=== PATIENT | male | born 1955 | race Caucasian/White ===

== ENCOUNTER 2017-01-17 15:24 | Inpatient (IN) | payer MEDICARE, OTHER ==
[~2017-01-17] VITALS: Ht 170.2 cm; Wt 94.8 kg
[~2017-01-17 15:24] MED LIST: ALBUTEROL0.63 MG/3 NEB; AMBIEN10 MG PO; ASPIR 8181 MG PO; ATROVENT INH S2.5 ML NEB; AZITHROMYCIN500 MG PO; BUMEX 1MG TABLET1 MG PO; COMBIVENT0.074 GM/I NEB; DIAMOX 250 MG250 MG PO; FOLIC ACID 1 MG1 MG PO; GLUCOTROL10 MG PO; HYDRALAZINE HCL25 MG PO; IMDUR ER TAB 6060 MG PO; LEVEMIR100 UNIT/1 SC; LIPITOR TAB 2020 MG PO; LISINOPRIL2.5 MG PO; LOPRESSOR 25 MG25 MG PO; NEXIUM40 MG PO; NICOTINE PATCH1 EAC1 TD; NOVOLOG 10100 UNITS/ SC; OMNICEF 300 MG300 MG PO; PLAVIX 75 MG TA75 MG PO; SPIRIVA18 MCG INH; SYMBICORT 16010.2 GM INH; THERAGRAN TAB1 EA PO; VALIUM 5 MG TAB5 MG PO; VENTOLIN/PROVE0.5 ML INH
[2017-01-17 17:24] LABS: RED BLOOD COUNT 4.39 M/UL (4.20-5.50); WHITE BLOOD COUNT 4.2 K/UL (4.5-11.0)
[2017-01-18] MEDS ORDERED: HYDRALAZINE HCL50 MG PO (00:41)
[2017-01-18 04:16] LABS: HEMOGLOBIN 12.1 gm/dl (14.0-17.5); RED BLOOD COUNT 4.13 M/UL (4.20-5.50); WHITE BLOOD COUNT 3.9 K/UL (4.5-11.0)
[2017-01-19 07:12] LABS: HEMOGLOBIN 12.9 gm/dl (14.0-17.5); RED BLOOD COUNT 4.36 M/UL (4.20-5.50); WHITE BLOOD COUNT 3.7 K/UL (4.5-11.0)
--- NOTE | 2017-01-19 19:34 | NUR ---
01/19/17 @ 1800 BLADDER SCANNED PER MD ORDER WITH 40CC NOTED ON SCREEN.
[2017-01-20 06:53] LABS: HEMOGLOBIN 13.2 gm/dl (14.0-17.5); RED BLOOD COUNT 4.5 M/UL (4.20-5.50); WHITE BLOOD COUNT 4.6 K/UL (4.5-11.0)
--- NOTE | 2017-01-20 15:04 | NUR ---
PT HAS REQUESTED TO BE UP TO BSC AND UP TO CHAIR THEN BACK IN BED SEVERAL TIMES TODAY, ALMOST FELL SEVERAL TIMES WITH 2 ASSISTING, HAD BECAME AGITATED WITH STAFF AND FAMILY, REFUSES TO USE URINAL OR BEDPAN, DR HOLDEN NOTIFIED AND WILL ASSESS. TRIM INSTALLER PROVIDED SITTER FOR PT AT THIS TIME. PT HAS SETTLED AT THIS TIME, WILL CONT TO MONITER, VITALS STABLE
[2017-01-21 04:33] LABS: HEMOGLOBIN 12.4 gm/dl (14.0-17.5); RED BLOOD COUNT 4.2 M/UL (4.20-5.50); WHITE BLOOD COUNT 5.5 K/UL (4.5-11.0)
[2017-01-22 06:00] LABS: HEMOGLOBIN 12.8 gm/dl (14.0-17.5); RED BLOOD COUNT 4.36 M/UL (4.20-5.50); WHITE BLOOD COUNT 5.5 K/UL (4.5-11.0)
[2017-01-28 06:10] LABS: HEMOGLOBIN 11.7 gm/dl (14.0-17.5); RED BLOOD COUNT 4.03 M/UL (4.20-5.50); WHITE BLOOD COUNT 5.4 K/UL (4.5-11.0)
[2017-01-28 06:51] LABS: BUN/CREATININE RATIO 11 (0-10)
[2017-01-29 05:09] LABS: HEMOGLOBIN 11.6 gm/dl (14.0-17.5); WHITE BLOOD COUNT 6.2 K/UL (4.5-11.0)
[2017-01-29 05:43] LABS: BUN/CREATININE RATIO 13 (0-10)
== END 2017-01-29 16:11 | DRG 682 ==
LOC: ER1 15:24 → M/S 19:50 → ZEROF 19:50 → M/S 21:35
PROVIDERS: Emergency Medicine; Legal Medicine; ADMIT Family Medicine
DX: N17.9 Acute kidney failure, unspecified (principal); G93.40 Encephalopathy, unspecified; I13.0 Hypertensive heart and chronic kidney disease with heart failure and stage 1 through stage 4 chronic kidney disease, or unspecified chronic kidney disease; I50.32 Chronic diastolic (congestive) heart failure; J96.11 Chronic respiratory failure with hypoxia; E87.2 Acidosis; D61.818 Other pancytopenia; E66.2 Morbid (severe) obesity with alveolar hypoventilation; E86.0 Dehydration; E87.6 Hypokalemia; A08.4 Viral intestinal infection, unspecified; E11.22 Type 2 diabetes mellitus with diabetic chronic kidney disease; N18.3 Chronic kidney disease, stage 3 (moderate); J44.9 Chronic obstructive pulmonary disease, unspecified; E11.65 Type 2 diabetes mellitus with hyperglycemia; E11.649 Type 2 diabetes mellitus with hypoglycemia without coma; I25.10 Atherosclerotic heart disease of native coronary artery without angina pectoris; I65.21 Occlusion and stenosis of right carotid artery; G72.9 Myopathy, unspecified; E78.5 Hyperlipidemia, unspecified; I73.9 Peripheral vascular disease, unspecified; R07.89 Other chest pain; R74.8 Abnormal levels of other serum enzymes; R13.10 Dysphagia, unspecified; F32.9 Major depressive disorder, single episode, unspecified; F41.1 Generalized anxiety disorder; Z95.5 Presence of coronary angioplasty implant and graft; Z95.820 Peripheral vascular angioplasty status with implants and grafts; Z86.73 Personal history of transient ischemic attack (TIA), and cerebral infarction without residual deficits; Z86.14 Personal history of Methicillin resistant Staphylococcus aureus infection; Z91.81 History of falling; Z68.32 Body mass index [BMI] 32.0-32.9, adult; Z99.81 Dependence on supplemental oxygen; Z79.4 Long term (current) use of insulin; Z79.02 Long term (current) use of antithrombotics/antiplatelets; Z79.82 Long term (current) use of aspirin; Z79.51 Long term (current) use of inhaled steroids; Z79.899 Other long term (current) drug therapy; Z88.3 Allergy status to other anti-infective agents; Z80.42 Family history of malignant neoplasm of prostate
CPT/HCPCS: 36415; 70450; 70551; 71010; 72125; 74230; 80048; 80053; 81001; 82140; 82550; 82553; 82962; 83605; 83690; 83874; 83880; 84484; 85025; 85027; 85610; 85730; 86140; 86618; 86666; 87040; 87045; 87046; 87086; 89055; 92526; 92610; 92611-GN; 94640; 94660; 94664; 96361; 96374; 97110; 97116; 97530; 97535; 99285; J1644; J2405; J7030